=== PATIENT | male | born 2000 | race Caucasian/White ===

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

== ENCOUNTER 2020-04-05 19:05 | Emergency (ER) | payer OTHER ==
[2020-04-05 19:14] VITALS: BP 117/70; PULSE 59; TEMP 98.1; BMI 22.8
[2020-04-05] MEDS ORDERED: KETOROLAC TROMETHAMINE 30 MG/1 ML VIAL ONE (19:24)
[2020-04-05] MEDS ORDERED: SODIUM CHLORIDE 1,000 ML IV ONE (19:26)
[2020-04-05] MEDS ORDERED: KETOROLAC TROMETHAMINE 30 MG/1 ML VIAL IVPUSH ONE (19:26)
[2020-04-05] MEDS ORDERED: ONDANSETRON 4 MG/2 ML VIAL IVPB ONE (19:26)
[2020-04-05] MEDS ORDERED: morphine CARPU-JECT 2 MG/1 ML DISP.SYRIN IVPUSH ONE (19:26)
[2020-04-05] MEDS ORDERED: ONDANSETRON 4 MG/2 ML VIAL ONE (19:28)
[2020-04-05 19:38] LABS: BASO % 1.5 % (0-2.0); HEMATOCRIT 49.3 % (35.4-49); HEMOGLOBIN 16.7 GM/dl (11.7-16.9); LYMPH % 33.3 % (8-40); MCH 29.8 pg (25.7-33.7); MEAN CELL VOLUME 87.6 fl (80-96); MEAN PLT VOLUME 8.5 fl (7.5-11.1); MONO % 6.3 % (3.8-10.2); NEUT % 54.9 % (42.8-82.8); PLATELET COUNT 236 K/MM3 (134-434); RBC 5.63 M/mm3 (4.00-5.60); RDW 12.1 % (11.9-15.9); WHITE BLOOD COUNT 7.1 K/mm3 (4.0-10.8)
[2020-04-05 19:46] LABS: ALBUMIN 5.2 g/dl (3.4-5.0); BILIRUBIN,TOTAL 1.2 mg/dl (0.2-1); CREATININE 0.9 mg/dl (0.55-1.3); POTASSIUM 4.3 mmol/L (3.5-5.1); TOT PROT 7.6 g/dl (6.4-8.2)
[2020-04-05] MEDS ORDERED: morphine SULFATE 4 MG/ML VIAL ONE (20:26)
--- NOTE | 2020-04-05 21:06 | PDOC ---
Documentation entered by Sasha Coleman SCRIBE, acting as scribe for Marito Fowler MD. Marito Fowler MD: This documentation has been prepared by the shiraibe, Sasha Coleman SCRIBE, under my direction and personally reviewed by me in its entirety. I confirm that the documentation accurately reflects all work, treatment, procedures, and medical decision making performed by me. History of Present Illness - General Chief Complaint: Pain Stated Complaint: ABDOMINAL PAIN History Source: Patient Exam Limitations: No Limitations - History of Present Illness Initial Comments: 04/05/20 19:36 The patient is a 19-year-old male who presents to the emergency department with abdominal pain. The patient reports an acute onset of midline abdominal pain a few hours ago associated with nausea, which worsened within the past half an hour. The patient recalls having oatmeal, strawberry/banana smoothie, grapes, and half a hamburger (states he couldnt finish the full sandwich) to eat today, denies pain aggravation with food. Denies fever or chills. Denies vomiting or diarrhea. PAST MEDICAL HISTORY: Kidney stones and exercise-induced asthma. PAST SURGICAL HISTORY: no significant history FAMILY HISTORY: no pertinent history SOCIAL HISTORY: Pt lives with family and is a student. MEDICATIONS: reviewed ALLERGIES: As per nursing notes PCP: Dr. Juan Wade. Review of system: General: No fevers or chills, no weakness, no weight loss HEENT: No change in vision. No sore throat. No ear pain Cardiovascular: No chest pain or shortness of breath Respiratory: No cough, or wheezing. Gastrointestinal: +midline abdominal pain associated with nausea. Denies vomiting, diarrhea or constipation, No rectal bleeding Genitourinary: No dysuria, hematuria, or frequency Musculoskeletal: No joint or muscle pain or swelling Neurologic: No headache, vertigo, dizziness or loss of consciousness Psychiatric: nor depression Skin: No rashes or easy bruising Endocrine: no increased thirst or abnormal weight change Allergic: no skin or latex allergy All other systems reviewed and normal Physical exam: General: Well-nourished well-developed individual, no acute distress HEENT: Throat: Normal, tonsils normal, no erythema or exudate Neck: Supple, no meningeal signs, no lymphadenopathy Eyes: Pupils equal reactive and round, extraocular motion intact Chest: non-tender to palpation Cardiac: S1-S2 normal, regular rate and rhythm, no murmurs rubs or gallops Respiratory: Lungs clear to auscultation bilateral Abdomen: +tenderness on palpation right upper quadrant and epigastric area, mild guarding, no rebound. Soft, non distended, normal bowel sounds. Extremities: Warm, dry, no cyanosis, clubbing, or edema Skin: No rashes Neuro: Alert and oriented x3, nonfocal exam, grossly intact, normal gait Psych: Normal mood and affect Assessment and plan: This is a 19-year-old male who comes in complaining of right upper quadrant abdominal pain. Patient has a history of renal colic in the past. My exam patient was very uncomfortable with tenderness in the right upper quadrant so possibility of gallbladder. Work-up initiated including CBC, comp, pain medications, IV fluids and a CAT scan. 04/05/20 20:33 Reevaluation patient feels much better pain is nearly resolved. Patient's work- up was unremarkable and his white count was normal his labs were normal his CAT scan showed no acute pathology there was a small amount of free fluid in the pelvis but otherwise no evidence of any intra-abdominal pathology. Patient given copies of his blood work and CAT scan and discharged home. 04/05/20 21:05 Past History - Medical History Allergies/Adverse Reactions: Allergies Allergy/AdvReac Type Severity Reaction Status Date / Time erythromycin base Allergy Unknown Verified 04/05/20 19:51 [From Pediazole] sulfisoxazole Allergy Unknown Verified 04/05/20 19:51 [From Pediazole] sulfur [From Sulfur-8] Allergy Unknown Verified 04/05/20 19:06 amoxicillin [Amoxicillin] Allergy Verified 04/05/20 19:51 Penicillins Allergy Verified 04/05/20 19:51 Home Medications: Ambulatory Orders Albuterol Sulfate Inhaler - [Ventolin Hfa Inhaler -] 1 puff IH PRN PRN 11/24/16 Asthma: Yes COPD: No - Immunization History Td Vaccination: Yes Immunization Up to Date: Yes - Psycho-Social/Smoking History Smoking Status: No Smoking History: Never smoked Have you smoked in the past 12 months: No Number of Cigarettes Smoked Daily: 0 ED Treatment Course - LABORATORY CBC & Chemistry Diagram: 04/05/20 19:20 04/05/20 19:20 Discharge - Discharge Information Problems reviewed: Yes Clinical Impression/Diagnosis: Abdominal pain Qualifiers: Abdominal location: upper abdomen, unspecified Qualified Code(s): R10.10 - Upper abdominal pain, unspecified Condition: Stable Disposition: HOME - Follow up/Referral Referrals: Sean Wade [Primary Care Provider] - - Patient Discharge Instructions Additional Instructions: Return to the emergency department immediately with ANY new, persistent or worsening symptoms. Continue any medications as previously prescribed by your physician. You should follow up with your primary doctor as soon as possible regarding today's emergency department visit. . Please make sure your doctor reviews the results of your emergency evaluation. Thank you for coming to the Emergency Department today for your care. It was a pleasure to see you today. Please note that your evaluation is INCOMPLETE until you follow-up with your doctor. - Post Discharge Activity
== END 2020-04-05 21:50 | disposition home or self-care (01) ==
LOC: FER 19:05 → SUPCPDRO 19:05 → FER 21:50
PROC: 3E033NZ Introduction of Analgesics, Hypnotics, Sedatives into Peripheral Vein, Percutaneous Approach (ICD-10-PCS; principal; 2020-04-05)
PROC: 3E033GC Introduction of Other Therapeutic Substance into Peripheral Vein, Percutaneous Approach (ICD-10-PCS; 2020-04-05)
PROC: 3E0337Z Introduction of Electrolytic and Water Balance Substance into Peripheral Vein, Percutaneous Approach (ICD-10-PCS; 2020-04-05)
DX: R10.10 Upper abdominal pain, unspecified (principal)
CPT/HCPCS: 36415; 74176-TC; 80053; 81003; 81015; 85025; 87086; 99284-25